=== PATIENT | male | born 1945 | race Caucasian/White ===

== ENCOUNTER 2018-06-14 17:19 | Emergency (ER) | payer MEDICARE, OTHER ==
[~2018-06-14] VITALS: Ht 177.8 cm; Wt 81.7 kg
[~2018-06-14 17:19] MED LIST: K-Dur20 MEQ PO; LISINOPRIL-? DOSE; Lopressor 25 mg25 MG; MECL25 PO; Toprol Xl25 MG PO; WARF1 PO
[2018-06-14] MEDS ORDERED: Percocet 10-321 EACH PO (19:03)
== END 2018-06-14 19:12 | disposition home or self-care (01) ==
LOC: ER 17:19
DX: S82.851A Displaced trimalleolar fracture of right lower leg, initial encounter for closed fracture (principal); X50.9XXA Other and unspecified overexertion or strenuous movements or postures, initial encounter; Z79.899 Other long term (current) drug therapy; I10 Essential (primary) hypertension; Z79.01 Long term (current) use of anticoagulants
CPT/HCPCS: 73600; 73610; 73630; J3010

== ENCOUNTER 2018-06-20 10:27 | Day surgery (SDC) | payer MEDICARE, OTHER ==
[~2018-06-20] VITALS: Ht 180.3 cm; Wt 81.7 kg
[~2018-06-20 10:27] MED LIST changes: +Percocet 10-321 EACH PO
--- NOTE | 2018-06-20 11:56 | NUR ---
06/20/18 1156 Neyda Conner 1140 PLACED PILLOW UNDER PT'S LEG FOR COMFORT
[2018-06-20 12:01] LABS: International Normalized Ratio 1.43; Prothrombin Time Results 14.7 Sec (9.7-11.5)
--- NOTE | 2018-06-20 14:17 | NUR ---
06/20/18 1417 Olivia Langley FENTANYL 25 MCG IV AT 1416 FOR PAIN IN RIGHT LEG
--- NOTE | 2018-06-20 14:41 | NUR ---
06/20/18 1441 Jaqueline Kellogg PT IS IN THE RECLINER AT THIS TIME AND ACCOMPANIED BY HIS DAUGHTER IN LAW. VSS. PT COMPLAINS OF PAIN; RN IS TREATING PAIN WITH IV PAIN MEDICATIONS PER DR'S ORDERS. ICE IS APPLIED BEHIND THE KNEE AND OP LEG IS ELEVATED ON PILLOWS. PT IS TOLERATING PO FLUIDS AND CRACKERS WELL.
== END 2018-06-20 15:40 | disposition home or self-care (01) ==
LOC: ORSCSDS 10:27
PROVIDERS: Orthopaedic Surgery
PROC: 0QSJ04Z Reposition Right Fibula with Internal Fixation Device, Open Approach (ICD-10-PCS; principal; 2018-06-20 12:30)
DX: S82.61XA Displaced fracture of lateral malleolus of right fibula, initial encounter for closed fracture (principal); I10 Essential (primary) hypertension; I48.91 Unspecified atrial fibrillation; Z79.01 Long term (current) use of anticoagulants; Z79.899 Other long term (current) drug therapy
CPT/HCPCS: 85610; A9270-GY; C1713; J0690; J1100; J2250; J2370; J2405; J2704; J3010; J7120